=== PATIENT | male | born 1980 | race Caucasian/White ===

== ENCOUNTER 2021-01-21 09:47 | Emergency (ER) | payer OTHER ==
[~2021-01-21] VITALS: Ht 180.3 cm; Wt 112.7 kg
[2021-01-21 09:51] VITALS: BP 164/109; Ht 180.3 cm; Wt 112.7 kg
[2021-01-21] MEDS ORDERED: TORADOL10 MG PO (09:54)
[2021-01-21] MEDS ORDERED: METHOCARBAMOL500 MG PO (12:29)
== END 2021-01-21 12:53 | disposition home or self-care (01) ==
LOC: D.ER 09:47
DX: S63.502A Unspecified sprain of left wrist, initial encounter (principal); V89.2XXA Person injured in unspecified motor-vehicle accident, traffic, initial encounter; S16.1XXA Strain of muscle, fascia and tendon at neck level, initial encounter